=== PATIENT | male | born 1960 | race Caucasian/White ===

== ENCOUNTER → 2017-02-12 14:31 | Outpatient (CLI) | payer BC ==
[2017-02-12 15:14] LABS: BASOPHILS 0.7 % (0-2); EOSINOPHILS 0.7 % (0-7); HEMATOCRIT 27.3 % (42.0-54.0); HEMOGLOBIN 8.8 g/dL (13.5-17.5); IMMATURE GRANULOCYTES 0.6 % (0-5); LYMPHOCYTES 26.5 % (15-50); MCH 29.1 pg (26.0-34.0); MCHC 32.2 g/dL (31.0-37.0); MCV 90.4 fL (80.0-100.0); MEAN PLATELET VOLUME 8.3 fL (7.4-10.4); MONOCYTES 11.3 % (2-11); NEUTROPHILS 60.2 % (40-80); PLATELET COUNT 884 10x3/uL (130-400); RBC 3.02 10x6/uL (4.20-6.10); RDW 14.3 % (11.5-14.5); WBC 9.4 10x3/uL (4.8-10.8)
[2017-02-12 15:55] LABS: ALBUMIN 2.3 g/dL (3.4-5.0); BILIRUBIN - DIRECT 0.05 mg/dL (0.00-0.30); BILIRUBIN - INDIRECT 0.15 mg/dL (0.00-1.00); BILIRUBIN - TOTAL 0.2 mg/dL (0.2-1.3); C-REACTIVE PROTEIN 8.4 mg/dL (0.0-0.9); CALCIUM 9.3 mg/dL (8.5-10.1); CARBON DIOXIDE 27.7 mmol/L (21.0-32.0); CREATININE - SERUM 1.1 mg/dL (0.6-1.3); POTASSIUM - SERUM 3.7 mmol/L (3.5-5.1); PROTEIN - SERUM 7.9 g/dL (6.4-8.2)
[2017-02-12 16:31] LABS: ERYTHROCYTE SEDIMENTATION RATE 145 mm/hr (0-20)
== END | disposition home or self-care (01) ==
LOC: D.LABREF 14:31
PROVIDERS: Internal Medicine Infectious Disease
DX: M00.869 Arthritis due to other bacteria, unspecified knee (principal)

== ENCOUNTER → 2017-02-17 10:57 | Outpatient (CLI) | payer BC ==
[2017-02-17 11:48] LABS: BASOPHILS 0.3 % (0-2); EOSINOPHILS 0.9 % (0-7); HEMATOCRIT 29.4 % (42.0-54.0); HEMOGLOBIN 9.4 g/dL (13.5-17.5); IMMATURE GRANULOCYTES 0.4 % (0-5); LYMPHOCYTES 26.9 % (15-50); MCH 28.7 pg (26.0-34.0); MCV 89.6 fL (80.0-100.0); MEAN PLATELET VOLUME 8.6 fL (7.4-10.4); MONOCYTES 9.5 % (2-11); RBC 3.28 10x6/uL (4.20-6.10); RDW 14.3 % (11.5-14.5); WBC 8.9 10x3/uL (4.8-10.8)
[2017-02-17 11:50] LABS: PLATELET COUNT 635 10x3/uL (130-400)
[2017-02-17 12:15] LABS: ALBUMIN 2.4 g/dL (3.4-5.0); ALKALINE PHOSPHATASE 165 U/L (46-116); ALT (SGPT) 22 U/L (10-68); BILIRUBIN - DIRECT 0.08 mg/dL (0.00-0.30); BILIRUBIN - INDIRECT 0.24 mg/dL (0.00-1.00); BILIRUBIN - TOTAL 0.32 mg/dL (0.2-1.3); C-REACTIVE PROTEIN 6.1 mg/dL (0.0-0.9); CALC OSMOLALITY 271 mosm/kg (275-300); CALCIUM 9.5 mg/dL (8.5-10.1); CHLORIDE - SERUM 98 mmol/L (98-107); POTASSIUM - SERUM 3.5 mmol/L (3.5-5.1); PROTEIN - SERUM 8.1 g/dL (6.4-8.2); SODIUM 134 mmol/L (136-145); UREA NITROGEN 12 mg/dL (7-18); eGFR NON AFRICAN AMERICAN 83 mL/min (90-120)
[2017-02-17 12:17] LABS: GLUCOSE 165 mg/dL (74-106)
[2017-02-17 13:19] LABS: ERYTHROCYTE SEDIMENTATION RATE 107 mm/hr (0-20)
== END | disposition home or self-care (01) ==
LOC: D.LAB 10:57
PROVIDERS: Internal Medicine Infectious Disease
DX: M00.869 Arthritis due to other bacteria, unspecified knee (principal)

== ENCOUNTER → 2017-02-25 12:55 | Outpatient (CLI) | payer BC ==
[2017-02-25 13:14] LABS: BASOPHILS 0.3 % (0-2); HEMATOCRIT 26.1 % (42.0-54.0); HEMOGLOBIN 8.5 g/dL (13.5-17.5); IMMATURE GRANULOCYTES 0.9 % (0-5); LYMPHOCYTES 22.7 % (15-50); MCH 29.1 pg (26.0-34.0); MCHC 32.6 g/dL (31.0-37.0); MCV 89.4 fL (80.0-100.0); MEAN PLATELET VOLUME 8.7 fL (7.4-10.4); MONOCYTES 11.6 % (2-11); NEUTROPHILS 62.5 % (40-80); RBC 2.92 10x6/uL (4.20-6.10); RDW 14.1 % (11.5-14.5); WBC 10.1 10x3/uL (4.8-10.8)
[2017-02-25 13:19] LABS: PLATELET COUNT 470 10x3/uL (130-400)
[2017-02-25 13:30] LABS: ANION GAP 12.6 mmol/L (8-16); BILIRUBIN - DIRECT 0.07 mg/dL (0.00-0.30); BILIRUBIN - INDIRECT 0.31 mg/dL (0.00-1.00); BILIRUBIN - TOTAL 0.38 mg/dL (0.2-1.3); CALCIUM 8.9 mg/dL (8.5-10.1); CARBON DIOXIDE 26.6 mmol/L (21.0-32.0); CREATININE - SERUM 1.1 mg/dL (0.6-1.3); POTASSIUM - SERUM 3.2 mmol/L (3.5-5.1); PROTEIN - SERUM 7.2 g/dL (6.4-8.2); VANCOMYCIN - TROUGH 6.6 ug/mL (10.0-20.0)
[2017-02-25 13:41] LABS: C-REACTIVE PROTEIN 21.3 mg/dL (0.0-0.9)
[2017-02-25 14:18] LABS: ERYTHROCYTE SEDIMENTATION RATE 126 mm/hr (0-20)
== END | disposition home or self-care (01) ==
LOC: D.LABREF 12:55
PROVIDERS: Internal Medicine Infectious Disease
DX: M00.9 Pyogenic arthritis, unspecified (principal)

== ENCOUNTER → 2017-02-27 10:49 | Outpatient (CLI) | payer BC ==
[2017-02-27 11:18] LABS: BASOPHILS 0.5 % (0-2); EOSINOPHILS 2.1 % (0-7); HEMATOCRIT 27.3 % (42.0-54.0); IMMATURE GRANULOCYTES 1.3 % (0-5); LYMPHOCYTES 26.1 % (15-50); MCH 29.5 pg (26.0-34.0); MCV 89.5 fL (80.0-100.0); MEAN PLATELET VOLUME 8.5 fL (7.4-10.4); MONOCYTES 10.8 % (2-11); NEUTROPHILS 59.2 % (40-80); PLATELET COUNT 557 10x3/uL (130-400); RBC 3.05 10x6/uL (4.20-6.10); RDW 14.1 % (11.5-14.5); WBC 10.7 10x3/uL (4.8-10.8)
[2017-02-27 12:25] LABS: ALBUMIN 2.2 g/dL (3.4-5.0); ANION GAP 13.6 mmol/L (8-16); BILIRUBIN - DIRECT 0.09 mg/dL (0.00-0.30); BILIRUBIN - INDIRECT 0.37 mg/dL (0.00-1.00); BILIRUBIN - TOTAL 0.46 mg/dL (0.2-1.3); C-REACTIVE PROTEIN 15.6 mg/dL (0.0-0.9); CALCIUM 9.4 mg/dL (8.5-10.1); CREATININE - SERUM 1.2 mg/dL (0.6-1.3); POTASSIUM - SERUM 3.6 mmol/L (3.5-5.1); VANCOMYCIN - TROUGH 12.6 ug/mL (10.0-20.0)
[2017-02-27 12:26] LABS: ERYTHROCYTE SEDIMENTATION RATE 120 mm/hr (0-20)
== END | disposition home or self-care (01) ==
LOC: D.LABREF 10:49
PROVIDERS: Internal Medicine Infectious Disease
DX: Z51.81 Encounter for therapeutic drug level monitoring (principal); Z79.2 Long term (current) use of antibiotics; B95.4 Other streptococcus as the cause of diseases classified elsewhere; M00.262 Other streptococcal arthritis, left knee

== ENCOUNTER → 2017-03-03 13:27 | Outpatient (CLI) | payer BC ==
[2017-03-03 13:48] LABS: BASOPHILS 0.5 % (0-2); EOSINOPHILS 1.4 % (0-7); HEMATOCRIT 30.7 % (42.0-54.0); HEMOGLOBIN 9.6 g/dL (13.5-17.5); IMMATURE GRANULOCYTES 2.1 % (0-5); LYMPHOCYTES 23.7 % (15-50); MCH 28.7 pg (26.0-34.0); MCHC 31.3 g/dL (31.0-37.0); MCV 91.9 fL (80.0-100.0); MEAN PLATELET VOLUME 8.4 fL (7.4-10.4); MONOCYTES 10.3 % (2-11); RBC 3.34 10x6/uL (4.20-6.10); RDW 14.9 % (11.5-14.5); WBC 13.1 10x3/uL (4.8-10.8)
[2017-03-03 13:53] LABS: ALBUMIN 2.5 g/dL (3.4-5.0); ALKALINE PHOSPHATASE 186 U/L (46-116); ALT (SGPT) 28 U/L (10-68); BILIRUBIN - INDIRECT 0.44 mg/dL (0.00-1.00); BILIRUBIN - TOTAL 0.54 mg/dL (0.2-1.3); C-REACTIVE PROTEIN 6.2 mg/dL (0.0-0.9); CALC OSMOLALITY 270 mosm/kg (275-300); CALCIUM 9.2 mg/dL (8.5-10.1); CARBON DIOXIDE 24.7 mmol/L (21.0-32.0); CHLORIDE - SERUM 101 mmol/L (98-107); POTASSIUM - SERUM 3.9 mmol/L (3.5-5.1); PROTEIN - SERUM 8.1 g/dL (6.4-8.2); SODIUM 136 mmol/L (136-145); UREA NITROGEN 10 mg/dL (7-18); VANCOMYCIN - TROUGH 11.5 ug/mL (10.0-20.0); eGFR NON AFRICAN AMERICAN 83 mL/min (90-120)
[2017-03-03 13:57] LABS: GLUCOSE 91 mg/dL (74-106)
[2017-03-03 14:10] LABS: PLATELET COUNT 757 10x3/uL (130-400)
[2017-03-03 14:52] LABS: ERYTHROCYTE SEDIMENTATION RATE 27 mm/hr (0-20)
== END | disposition home or self-care (01) ==
LOC: D.LABREF 13:27
PROVIDERS: Internal Medicine Infectious Disease
DX: M00.9 Pyogenic arthritis, unspecified (principal)

== ENCOUNTER → 2017-03-10 10:09 | Outpatient (CLI) | payer BC ==
[2017-03-10 12:52] LABS: BASOPHILS 0.9 % (0-2); EOSINOPHILS 2.2 % (0-7); HEMATOCRIT 31.1 % (42.0-54.0); HEMOGLOBIN 9.8 g/dL (13.5-17.5); IMMATURE GRANULOCYTES 1.1 % (0-5); LYMPHOCYTES 21.4 % (15-50); MCH 28.6 pg (26.0-34.0); MCHC 31.5 g/dL (31.0-37.0); MCV 90.7 fL (80.0-100.0); MEAN PLATELET VOLUME 8.5 fL (7.4-10.4); MONOCYTES 10.6 % (2-11); NEUTROPHILS 63.8 % (40-80); PLATELET COUNT 703 10x3/uL (130-400); RBC 3.43 10x6/uL (4.20-6.10); RDW 14.5 % (11.5-14.5); WBC 10.1 10x3/uL (4.8-10.8)
[2017-03-10 13:13] LABS: ALBUMIN 2.7 g/dL (3.4-5.0); ALKALINE PHOSPHATASE 187 U/L (46-116); ALT (SGPT) 23 U/L (10-68); BILIRUBIN - DIRECT 0.11 mg/dL (0.00-0.30); BILIRUBIN - INDIRECT 0.28 mg/dL (0.00-1.00); BILIRUBIN - TOTAL 0.39 mg/dL (0.2-1.3); C-REACTIVE PROTEIN 4.8 mg/dL (0.0-0.9); CALC OSMOLALITY 270 mosm/kg (275-300); CALCIUM 9.1 mg/dL (8.5-10.1); CARBON DIOXIDE 25.2 mmol/L (21.0-32.0); CHLORIDE - SERUM 102 mmol/L (98-107); GLUCOSE 83 mg/dL (74-106); POTASSIUM - SERUM 4.4 mmol/L (3.5-5.1); PROTEIN - SERUM 7.4 g/dL (6.4-8.2); SODIUM 137 mmol/L (136-145); UREA NITROGEN 8 mg/dL (7-18); VANCOMYCIN - TROUGH 12.4 ug/mL (10.0-20.0); eGFR NON AFRICAN AMERICAN 83 mL/min (90-120)
[2017-03-10 13:57] LABS: ERYTHROCYTE SEDIMENTATION RATE 71 mm/hr (0-20)
== END | disposition home or self-care (01) ==
LOC: D.LABREF 10:09
PROVIDERS: Internal Medicine Infectious Disease
DX: T84.7XXA Infection and inflammatory reaction due to other internal orthopedic prosthetic devices, implants and grafts, initial encounter (principal)

== ENCOUNTER → 2017-03-17 17:56 | Outpatient (CLI) | payer BC ==
[2017-03-17 19:45] LABS: BASOPHILS 0.5 % (0-2); EOSINOPHILS 1.8 % (0-7); HEMATOCRIT 40.2 % (42.0-54.0); HEMOGLOBIN 12.4 g/dL (13.5-17.5); IMMATURE GRANULOCYTES 0.7 % (0-5); LYMPHOCYTES 16.7 % (15-50); MCHC 30.8 g/dL (31.0-37.0); MCV 94.1 fL (80.0-100.0); MONOCYTES 9.2 % (2-11); NEUTROPHILS 71.1 % (40-80); PLATELET COUNT 529 10x3/uL (130-400); RBC 4.27 10x6/uL (4.20-6.10); RDW 15.3 % (11.5-14.5); WBC 9.7 10x3/uL (4.8-10.8)
[2017-03-17 20:07] LABS: ALBUMIN 3.2 g/dL (3.4-5.0); ALKALINE PHOSPHATASE 173 U/L (46-116); ALT (SGPT) 19 U/L (10-68); BILIRUBIN - DIRECT 0.06 mg/dL (0.00-0.30); BILIRUBIN - INDIRECT 0.25 mg/dL (0.00-1.00); BILIRUBIN - TOTAL 0.31 mg/dL (0.2-1.3); C-REACTIVE PROTEIN 1.7 mg/dL (0.0-0.9); CALC OSMOLALITY 276 mosm/kg (275-300); CALCIUM 9.5 mg/dL (8.5-10.1); CARBON DIOXIDE 25.2 mmol/L (21.0-32.0); CHLORIDE - SERUM 99 mmol/L (98-107); GLUCOSE 92 mg/dL (74-106); PROTEIN - SERUM 8.1 g/dL (6.4-8.2); SODIUM 139 mmol/L (136-145); UREA NITROGEN 9 mg/dL (7-18); VANCOMYCIN - TROUGH 16.3 ug/mL (10.0-20.0); eGFR NON AFRICAN AMERICAN 83 mL/min (90-120)
[2017-03-17 21:19] LABS: ERYTHROCYTE SEDIMENTATION RATE 9 mm/hr (0-20)
== END | disposition home or self-care (01) ==
LOC: D.LABREF 17:56
PROVIDERS: Internal Medicine Infectious Disease
DX: T84.7XXA Infection and inflammatory reaction due to other internal orthopedic prosthetic devices, implants and grafts, initial encounter (principal)

== ENCOUNTER → 2017-03-24 13:38 | Outpatient (CLI) | payer BC ==
[2017-03-24 14:05] LABS: BASOPHILS 1.3 % (0-2); EOSINOPHILS 2.7 % (0-7); HEMATOCRIT 39.7 % (42.0-54.0); HEMOGLOBIN 12.7 g/dL (13.5-17.5); IMMATURE GRANULOCYTES 0.9 % (0-5); LYMPHOCYTES 26.9 % (15-50); MCH 29.1 pg (26.0-34.0); MCV 91.1 fL (80.0-100.0); MEAN PLATELET VOLUME 9.1 fL (7.4-10.4); MONOCYTES 10.9 % (2-11); NEUTROPHILS 57.3 % (40-80); RBC 4.36 10x6/uL (4.20-6.10); RDW 15.1 % (11.5-14.5); WBC 7.7 10x3/uL (4.8-10.8)
[2017-03-24 14:19] LABS: PLATELET COUNT 357 10x3/uL (130-400)
[2017-03-24 14:21] LABS: ALBUMIN 3.4 g/dL (3.4-5.0); ALKALINE PHOSPHATASE 142 U/L (46-116); ALT (SGPT) 24 U/L (10-68); BILIRUBIN - DIRECT 0.09 mg/dL (0.00-0.30); BILIRUBIN - INDIRECT 0.37 mg/dL (0.00-1.00); BILIRUBIN - TOTAL 0.46 mg/dL (0.2-1.3); C-REACTIVE PROTEIN 0.6 mg/dL (0.0-0.9); CALC OSMOLALITY 273 mosm/kg (275-300); CARBON DIOXIDE 26.4 mmol/L (21.0-32.0); CHLORIDE - SERUM 100 mmol/L (98-107); CREATININE - SERUM 0.9 mg/dL (0.6-1.3); GLUCOSE 81 mg/dL (74-106); PROTEIN - SERUM 8.1 g/dL (6.4-8.2); SODIUM 138 mmol/L (136-145); UREA NITROGEN 10 mg/dL (7-18); VANCOMYCIN - TROUGH 19.6 ug/mL (10.0-20.0); eGFR NON AFRICAN AMERICAN > 90 mL/min (90-120)
[2017-03-24 15:14] LABS: ERYTHROCYTE SEDIMENTATION RATE 25 mm/hr (0-20)
== END | disposition home or self-care (01) ==
LOC: D.LABREF 13:38
PROVIDERS: Internal Medicine Infectious Disease
DX: T84.7XXA Infection and inflammatory reaction due to other internal orthopedic prosthetic devices, implants and grafts, initial encounter (principal)

== ENCOUNTER → 2017-03-31 12:09 | Outpatient (CLI) | payer BC ==
[2017-03-31 12:30] LABS: BASOPHILS 0.8 % (0-2); EOSINOPHILS 1.2 % (0-7); HEMATOCRIT 39.7 % (42.0-54.0); HEMOGLOBIN 12.8 g/dL (13.5-17.5); IMMATURE GRANULOCYTES 0.9 % (0-5); LYMPHOCYTES 18.9 % (15-50); MCH 29.2 pg (26.0-34.0); MCHC 32.2 g/dL (31.0-37.0); MCV 90.6 fL (80.0-100.0); MONOCYTES 14.9 % (2-11); NEUTROPHILS 63.3 % (40-80); PLATELET COUNT 358 10x3/uL (130-400); RBC 4.38 10x6/uL (4.20-6.10); RDW 15.3 % (11.5-14.5); WBC 7.7 10x3/uL (4.8-10.8)
[2017-03-31 12:52] LABS: ALBUMIN 3.4 g/dL (3.4-5.0); ALKALINE PHOSPHATASE 121 U/L (46-116); ALT (SGPT) 30 U/L (10-68); BILIRUBIN - INDIRECT 0.28 mg/dL (0.00-1.00); BILIRUBIN - TOTAL 0.38 mg/dL (0.2-1.3); C-REACTIVE PROTEIN 1.2 mg/dL (0.0-0.9); CALC OSMOLALITY 273 mosm/kg (275-300); CALCIUM 9.4 mg/dL (8.5-10.1); CARBON DIOXIDE 26.1 mmol/L (21.0-32.0); CHLORIDE - SERUM 100 mmol/L (98-107); GLUCOSE 93 mg/dL (74-106); POTASSIUM - SERUM 3.8 mmol/L (3.5-5.1); PROTEIN - SERUM 7.8 g/dL (6.4-8.2); SODIUM 138 mmol/L (136-145); UREA NITROGEN 8 mg/dL (7-18); VANCOMYCIN - TROUGH 16.6 ug/mL (10.0-20.0); eGFR NON AFRICAN AMERICAN 83 mL/min (90-120)
[2017-03-31 13:48] LABS: ERYTHROCYTE SEDIMENTATION RATE 15 mm/hr (0-20)
== END | disposition home or self-care (01) ==
LOC: D.LABREF 12:09
PROVIDERS: Internal Medicine Infectious Disease
DX: T84.7XXA Infection and inflammatory reaction due to other internal orthopedic prosthetic devices, implants and grafts, initial encounter (principal)

== ENCOUNTER → 2017-04-07 11:21 | Outpatient (CLI) | payer BC ==
[2017-04-07 12:34] LABS: BASOPHILS 0.8 % (0-2); EOSINOPHILS 2.1 % (0-7); HEMATOCRIT 40.3 % (42.0-54.0); HEMOGLOBIN 12.8 g/dL (13.5-17.5); IMMATURE GRANULOCYTES 1.4 % (0-5); LYMPHOCYTES 33.6 % (15-50); MCH 28.5 pg (26.0-34.0); MCHC 31.8 g/dL (31.0-37.0); MCV 89.8 fL (80.0-100.0); MEAN PLATELET VOLUME 9.3 fL (7.4-10.4); MONOCYTES 9.2 % (2-11); NEUTROPHILS 52.9 % (40-80); PLATELET COUNT 422 10x3/uL (130-400); RBC 4.49 10x6/uL (4.20-6.10); RDW 15.3 % (11.5-14.5); WBC 10.3 10x3/uL (4.8-10.8)
[2017-04-07 13:02] LABS: C-REACTIVE PROTEIN 5.9 mg/dL (0.0-0.9); CALC OSMOLALITY 271 mosm/kg (275-300); CALCIUM 9.7 mg/dL (8.5-10.1); CARBON DIOXIDE 26.3 mmol/L (21.0-32.0); CHLORIDE - SERUM 100 mmol/L (98-107); CREATININE - SERUM 0.9 mg/dL (0.6-1.3); GLUCOSE 89 mg/dL (74-106); POTASSIUM - SERUM 4.3 mmol/L (3.5-5.1); SODIUM 137 mmol/L (136-145); UREA NITROGEN 10 mg/dL (7-18); eGFR NON AFRICAN AMERICAN > 90 mL/min (90-120)
[2017-04-07 13:38] LABS: ERYTHROCYTE SEDIMENTATION RATE 40 mm/hr (0-20)
== END | disposition home or self-care (01) ==
LOC: D.LABREF 11:21
PROVIDERS: Internal Medicine Infectious Disease
DX: T84.7XXA Infection and inflammatory reaction due to other internal orthopedic prosthetic devices, implants and grafts, initial encounter (principal)

== ENCOUNTER → 2018-08-06 08:10 | Outpatient (CLI) | payer BC ==
--- NOTE | ~2018-08-06 | HEMODYNAMI ---
PATIENT:KAY OLVERA MEDICAL RECORD: [id number] : 64 LOCATION:[facility] ADMISSION DATE: 08/06/18 Generatedon:08/06/20189:26 Patient name: KAY OLVERA Patient #: [id number] SSN: : 1960 Date of study: 08/06/2018 Page: Of Hemodynamic Procedure Report Patient Data Patient Demographics Procedure consent was obtained First Name: KAY Gender: Male Last Name: MAY : 1960 Patient #: [id number] Age: 57 year(s) Race: Unknown Additional ID: [id number] Contact details [address]: [address] [place] [address] State: [place] City: [place] Zip code: [address] Past Medical History Allergies: No known allergies Admission Admission Data Admission Date: 08/06/2018 Admission Time: 8:10 Procedure Procedure Types Cath Procedure Peripheral Cath Diagnostic Procedure Mica Parts Sprayer Peripheral Procedures Miscellaneous Aspiration/Injection (Joint) Procedure Description Procedure Date Procedure Date: 08/06/2018 Procedure Start Time: 9:18 Procedure Staff Name Function Saurabh Yanez MD Performing Physician Marla Matthew RT Hanging Flags Decorator Jerica Weston RN Nurse Abdoul Villavicencio RT Scrub Procedure Data Cath Procedure Fluoroscopy Diagnostic fluoroscopy Total fluoroscopy Time: 0.1 time: 0.1 min min Diagnostic fluoroscopy Total fluoroscopy dose: 1 dose: 1 mGy mGy Hemodynamics Rest Pre Cath Intra NCS Post Cath Procedure Log Time Note 9:13:48 Abdoul Villavicencio RT (R) (CV) sent for patient. Start room use. 9:14:01 Time tracking: Regular hours (M-F 7:00 - 5:00) 9:14:06 Patient received from Outpatients to IR Alert and oriented. Tansferred to table in Supine position. 9:14:07 Correct patient and procedure confirmed by team. 9:14:09 Signed procedure consent form obtained from patient. 9:14:11 Full Disclosure recording started 9:14:13 9:14:14 Pre-procedure instructions explained to patient. 9:14:15 Pre-op teaching completed and patient verbalized understanding. 9:14:22 Patient allergic to No known allergies 9:14:28 Is patient on blood thinner?No 9:14:38 Left Knee was prepped with betadine and draped in sterile fashion. 9:17:49 Physician arrived 9:17:50 --------ALL STOP TIME OUT------ 9:17:51 Final Timeout: patient, procedure, and site verified with staff and physician. All members of the team are in agreement. 9:17:57 Left knee site verified by team. 9:18:10 Sedation plan: Local Anesthetic Medication:Lidocaine 9:18:36 Procedure started. 9:18:43 Local anesthetic to Left Knee with Lidocaine 1% by Saurabh Yanez MD.INITIAL ACCESS ONLY 9:24:44 Procedure ended.(Physican Out) 9:25:11 Fluoroscopy time 00.10 minutes. 9:25:17 Fluoroscopy dose: 1 mGy 9:25:17 Flurop Dose total: 1 9:25:54 bandaide applied to lt.knee site stable fluid marked collected and sent to lab Signature Audit [place] Stage Time Signature Unsigned Intra-Procedure 08/06/2018 Abdoul 9:26:09 AM Saud RT (R) () [facility] [address] [facility] [place] [address]
[2018-08-06 13:52] LABS: MACROPHAGES BF 11 %; NEUT - BF 79 %
== END | disposition home or self-care (01) ==
LOC: D.SP 08:10 → D.RAD 09:00 → D.SP 09:30 → D.RAD 09:30
PROVIDERS: Specialist; ATTEND Family Medicine
DX: M25.562 Pain in left knee (principal); Z01.812 Encounter for preprocedural laboratory examination

== ENCOUNTER 2018-08-14 07:41 | Day surgery (SDC) | payer BC ==
[~2018-08-14] VITALS: Ht 160 cm; Wt 81.8 kg
[2018-08-14] MEDS ORDERED: DIFLUCAN200 MG PO (09:39)
[2018-08-14] MEDS ORDERED: DUEXIS 800-26.1 EACH PO (09:39)
[2018-08-14 09:54] VITALS: BP 103/68; Ht 160 cm; Wt 81.8 kg
[2018-08-14] MEDS ORDERED: PERCOCET 5-3251 TAB PO (17:46)
--- NOTE | 2018-08-14 19:05 | NUR ---
PATIENT AMBULATES TO BATHROOM AND VOIDS IN TOILET, AMBULATES WITHOUT UNSTEADINESS OR DIFFICULTY. 190 RIGHT HAND PIV DC'D WITH TIP INTACT. PATIENT DRESSING IN PERSONAL CLOTHING WITH SPOUSE ASSISTANCE
--- NOTE | 2018-08-14 19:40 | NUR ---
DISCHARGE INSTRUCTIONS REVIEWED WITH PATIENT AND SPOUSE. DISCHARGED HOME VIA WHEELCHAIR TO PRIVATE VEHICLE WITH SPOUSE
--- NOTE | 2018-08-17 12:46 | OP ---
PATIENT NAME: KAY REYNOSO MEDICAL RECORD: [id number] :64 LOCATION:[facility] ADMISSION DATE: SURGEON: SAURABH LE DO DATE OF OPERATION: 08/14/2018 PROCEDURE PERFORMED: Left knee arthroscopy with irrigation and debridement and tissue and bone biopsy. PREOPERATIVE DIAGNOSIS: Left knee fungal infection. POSTOPERATIVE DIAGNOSIS: Left knee fungal infection. INDICATIONS: Mr. Reynoso is a 57-year-old male that has had several knee surgeries and ended up having a septic knee several times. Underwent several knee scopes after an ACL surgery that got infected at another facility and ended up having a synovectomy in order to eradicate the infection. He started to have more pain and swelling. His knee was aspirated earlier this week and grew out fungus. He was then put on antifungals and discussing with infectious disease doctor here, Dr. Hardin. This call came from his primary care. I saw him in the office yesterday and told him I would do an irrigation and debridement with the scope and get tissue biopsy and bone biopsy as well to ensure the whole infection was eradicated and did not have any osteomyelitis from it. The patient was aware of the risks and benefits of procedure and consented to the procedure. SURGEON: Saurabh Le DO VISITOR SERVICES REPRESENTATIVE: Edis Esposito DESCRIPTION OF PROCEDURE: The patient was taken to the operative suite, laid in supine position, given general anesthetic and LMA was placed. The left lower extremity was prepped and draped in sterile fashion. Antibiotics were held until the tissue culture was made, bone biopsy was made and then he was given a gram of vancomycin. After the time-out, the knee was flexed down and the lateral incision was made for the lateral portal. The trocar was entered into the knee. It was quite thickened due to the scar tissue. The camera was then entered in and then the medial portal was established with an 18-guage spinal needle and 11-blade scalpel. The biter was then brought in to bite out some of the tissue in the knee. This was put in a culture cup and then a Jamshidi needle was brought into the femoral condyle and the notch and a biopsy of bone was taken from that and then put in the cup. At that point, the condyles were inspected, both the medial and lateral femoral condyles as well as the medial and lateral tibial plateaus and all had severe cartilage loss. There was significant amount of cartilage floating around the knee as well. This was all chewed out with a shaver and the knee was washed through with 9 liters of normal saline. Once this was completed, the scope was removed from the knee as well as the shaver. The sites were closed with 4-0 Monocryl in an inverted interrupted fashion and Steri-Strips, Adaptic, 4 x 4's, and Tegaderm were placed over the knee. The knee was wrapped in ABD, then Webril, and then Rikki wrap and the SIXTO stocking was placed on the patient up to the knee. He was awakened and taken to recovery in stable condition. Blood loss was minimal. Complications none. TRANSINT:[id number] Voice Confirmation ID: [id number] DOCUMENT ID: [id number] OPERATIVE REPORT [id number] KAY REYNOSO,SAURABH Fagan DO at 1246 CC: [id number] DICTATION DATE: 08/14/181750 BONE CHAR KILN OPERATOR: 08/15/18 0006 [facility] 08/14/18 [facility] [address] [place] [address]
== END 2018-08-14 19:40 | disposition home or self-care (01) ==
LOC: D.OPS 07:41 → D.PAN 12:30 → D.OPS 19:40
PROVIDERS: ATTEND Orthopaedic Surgery
DX: T81.49XA Infection following a procedure, other surgical site, initial encounter (principal); B48.8 Other specified mycoses; Z01.812 Encounter for preprocedural laboratory examination

== ENCOUNTER → 2018-09-15 14:15 | Outpatient (CLI) | payer BC ==
[~2018-09-15 14:15] MED LIST: DIFLUCAN200 MG PO; DUEXIS 800-26.1 EACH PO; PERCOCET 5-3251 TAB PO
[2018-09-15 15:11] LABS: ALBUMIN 3.5 g/dL (3.4-5.0); ALKALINE PHOSPHATASE 102 U/L (46-116); ALT (SGPT) 18 U/L (10-68); BILIRUBIN - TOTAL 0.24 mg/dL (0.2-1.3); C-REACTIVE PROTEIN 3.7 mg/dL (0.0-0.9); CALC OSMOLALITY 280 mosm/kg (275-300); CALCIUM 8.8 mg/dL (8.5-10.1); CARBON DIOXIDE 25.4 mmol/L (21.0-32.0); CHLORIDE - SERUM 104 mmol/L (98-107); GLUCOSE 73 mg/dL (74-106); POTASSIUM - SERUM 4.9 mmol/L (3.5-5.1); PROTEIN - SERUM 8.1 g/dL (6.4-8.2); SODIUM 140 mmol/L (136-145); UREA NITROGEN 21 mg/dL (7-18); eGFR NON AFRICAN AMERICAN 82 mL/min (90-120)
[2018-09-15 16:27] LABS: ERYTHROCYTE SEDIMENTATION RATE 43 mm/hr (0-20)
== END | disposition home or self-care (01) ==
LOC: D.LABREF 14:15
PROVIDERS: Student in an Organized Health Care Education/Training Program
DX: M86.669 Other chronic osteomyelitis, unspecified tibia and fibula (principal)

== ENCOUNTER → 2018-11-02 15:57 | Outpatient (CLI) | payer BC ==
[2018-08-14 09:54] VITALS: BMI 31.9
[2018-11-02 20:10] LABS: MACROPHAGES BF 1 %; NEUT - BF 36 %
[2018-11-11 13:13] LABS: FUNGUS STAIN Final report (())
[2018-11-13 10:14] LABS: FUNGUS MYCOLOGY CULTURE Preliminary report (())
== END | disposition home or self-care (01) ==
LOC: D.LABREF 15:57
PROVIDERS: ATTEND Orthopaedic Surgery
DX: M25.562 Pain in left knee (principal)

== ENCOUNTER → 2018-11-06 17:01 | Outpatient (CLI) | payer BC ==
[2018-08-14 09:54] VITALS: BMI 31.9
[2018-11-06 18:34] LABS: BASOPHILS 0.5 % (0-2); EOSINOPHILS 1.9 % (0-7); HEMATOCRIT 33.3 % (42.0-54.0); HEMOGLOBIN 10.6 g/dL (13.5-17.5); IMMATURE GRANULOCYTES 0.6 % (0-5); LYMPHOCYTES 21.2 % (15-50); MCH 26.5 pg (26.0-34.0); MCHC 31.8 g/dL (31.0-37.0); MCV 83.3 fL (80.0-100.0); MEAN PLATELET VOLUME 9.2 fL (7.4-10.4); MONOCYTES 13.5 % (2-11); NEUTROPHILS 62.3 % (40-80); RDW 16.3 % (11.5-14.5); WBC 10.5 10x3/uL (4.8-10.8)
[2018-11-06 18:42] LABS: PLATELET COUNT 552 10x3/uL (130-400)
[2018-11-06 19:50] LABS: ERYTHROCYTE SEDIMENTATION RATE 60 mm/hr (0-20)
== END | disposition home or self-care (01) ==
LOC: D.LABREF 17:01
PROVIDERS: ATTEND Student in an Organized Health Care Education/Training Program
DX: M86.669 Other chronic osteomyelitis, unspecified tibia and fibula (principal)

== ENCOUNTER 2019-07-23 09:09 | Day surgery (SDC) | payer BC ==
[~2019-07-23] VITALS: Ht 160 cm; Wt 81.6 kg
[~2019-07-23 09:09] MED LIST changes: +ULTRAM50 MG PO
[2019-07-23 10:23] VITALS: BP 124/73; Ht 160 cm; Wt 81.6 kg
[2019-07-23] MEDS ORDERED: PERCOCET 10-321 EAC1 PO (15:24)
--- NOTE | 2019-07-23 21:20 | OP ---
PATIENT NAME: KAY REYNOSO MEDICAL RECORD: [id number] :64 LOCATION:[facility] ADMISSION DATE: SURGEON: SAURABH LE DO DATE OF OPERATION: 07/23/2019 PROCEDURE PERFORMED: Left knee arthroscopy with bone biopsy of the femur. PREOPERATIVE DIAGNOSIS: Osteomyelitis of the left knee. POSTOPERATIVE DIAGNOSIS: Osteomyelitis of the left knee. INDICATIONS: Mr. Reynoso is a 58-year-old male, who has a history of osteomyelitis of the left knee after a failed ACL surgery. He was treated elsewhere and then had a synovectomy as well as I&D and then came to me with continued knee pain. 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 He has been treated with antifungals for the last year. I did a knee aspiration 6 months ago. It did not show any fungus in the culture of the aspirate. I told him we would wait 6 months and then do a bone biopsy like we did before and have that sent off for cultures in anticipation that if it is clear, we would proceed with a total knee arthroplasty. He was okay with those risks including infection, bleeding, damage to nerves or vessels, need for further surgery, continued pain and instability of the knee and he signed a consent. SURGEON: Saurabh Le DO DESCRIPTION OF PROCEDURE: The patient was taken to the operative suite, given general anesthetic, LMA placed. Two grams of Ancef given preoperatively. The left lower extremity was then prepped and draped in sterile fashion. Timeout was performed. Everyone was agreeance with correct side, site, patient and procedure. We then started by creating the lateral portal with an 11-blade scalpel. Trocar was entered in to the knee, the scope was then entered to the knee. I went to the notch of the knee. The medial portal was then established with 18-guage spinal needle and 11-blade scalpel at that time and shaver first was brought in to debride the knee somewhat to clear a spot out in the notch. The Jamshidi needle was then brought in and a bone biopsy was taken at 2 different spots in the femoral notch and put in a specimen cup. I then turned the suction on the water off. I then removed the excess fluid from the knee. Portal sites were closed with 4-0 Monocryl in inverted interrupted fashion. Steri-Strips, Adaptic, 4 x 4's, ABD, Webril, Rikki wrap and SIXTO hose stockings were then placed on the knee. He was awakened and taken to recovery in stable condition. BLOOD LOSS: Minimal. COMPLICATIONS: None. TRANSINT:[id number] Voice Confirmation ID: [id number] DOCUMENT ID: [id number] OPERATIVE REPORT [id number] KAY REYNOSO,SAURABH Fagan DO at 2120 CC: [id number] DICTATION DATE: 07/23/19 1522 MATERIALS MANAGEMENT SUPERVISOR: 07/23/19 204 [facility] 07/23/19 [facility] [address] [place] [address]
== END 2019-07-23 16:55 | disposition home or self-care (01) ==
LOC: D.OPS 09:09 → D.PAN 11:15 → D.OPS 11:15 → D.PAN 13:40 → D.OPS 16:00
PROVIDERS: ATTEND Orthopaedic Surgery
DX: M86.8X6 Other osteomyelitis, lower leg (principal); M17.11 Unilateral primary osteoarthritis, right knee; M25.562 Pain in left knee; B49 Unspecified mycosis

== ENCOUNTER → 2019-09-23 19:52 | Outpatient (CLI) | payer BC ==
[2019-07-23 10:23] VITALS: BMI 31.9
[~2019-09-23 19:52] MED LIST changes: +PERCOCET 10-321 EAC1 PO
[2019-09-23 20:10] LABS: HEMATOCRIT 40.2 % (42.0-54.0); HEMOGLOBIN 11.8 g/dL (13.5-17.5); MCH 26.9 pg (26.0-34.0); MCHC 29.4 g/dL (31.0-37.0); MCV 91.8 fL (80.0-100.0); MEAN PLATELET VOLUME 9.2 fL (7.4-10.4); RBC 4.38 10x6/uL (4.20-6.10); RDW 17.4 % (11.5-14.5); WBC 9.9 10x3/uL (4.8-10.8)
[2019-09-23 20:13] LABS: PLATELET COUNT 415 10x3/uL (130-400)
[2019-09-23 20:31] LABS: EOSINOPHILS 3 % (0-7); LYMPHOCYTES 11 % (15-50); MONOCYTES 3 % (2-11); NEUTROPHILS 83 % (40-80); PLATELET ESTIMATE INCREASED
[2019-09-23 21:02] LABS: ALBUMIN 3.7 g/dL (3.4-5.0); ALKALINE PHOSPHATASE 110 U/L (30-120); ALT (SGPT) 28 U/L (10-68); BILIRUBIN - INDIRECT 0.21 mg/dL (0.00-1.00); BILIRUBIN - TOTAL 0.31 mg/dL (0.2-1.3); C-REACTIVE PROTEIN 5.8 mg/dL (0.0-0.9); CALC OSMOLALITY 277 mosm/kg (275-300); CALCIUM 8.9 mg/dL (8.5-10.1); CARBON DIOXIDE 23.9 mmol/L (21.0-32.0); CHLORIDE - SERUM 101 mmol/L (98-107); GLUCOSE 97 mg/dL (74-106); POTASSIUM - SERUM 4.3 mmol/L (3.5-5.1); PROTEIN - SERUM 7.9 g/dL (6.4-8.2); SODIUM 138 mmol/L (136-145); UREA NITROGEN 17 mg/dL (7-18); eGFR NON AFRICAN AMERICAN 82 mL/min (90-120)
[2019-09-23 21:31] LABS: ERYTHROCYTE SEDIMENTATION RATE 32 mm/hr (0-20)
== END | disposition home or self-care (01) ==
LOC: D.LABREF 19:52
PROVIDERS: ATTEND Orthopaedic Surgery
DX: M25.562 Pain in left knee (principal)

== ENCOUNTER 2019-10-19 05:19 | Day surgery (SDC) | payer BC ==
[~2019-10-19] VITALS: Ht 160 cm; Wt 81.6 kg
[~2019-10-19 05:19] MED LIST changes: +IBUPROFEN800 MG PO; +PEPCID AC20 MG PO
[2019-10-19 05:47] LABS: BASOPHILS 0.6 % (0-2); EOSINOPHILS 2.2 % (0-7); HEMATOCRIT 40.2 % (42.0-54.0); HEMOGLOBIN 12.7 g/dL (13.5-17.5); LYMPHOCYTES 30.5 % (15-50); MCH 28.3 pg (26.0-34.0); MCHC 31.6 g/dL (31.0-37.0); MCV 89.5 fL (80.0-100.0); MEAN PLATELET VOLUME 8.5 fL (7.4-10.4); NEUTROPHILS 53.7 % (40-80); PLATELET COUNT 370 10x3/uL (130-400); RBC 4.49 10x6/uL (4.20-6.10); RDW 16.3 % (11.5-14.5); WBC 9.1 10x3/uL (4.8-10.8)
[2019-10-19 06:10] VITALS: BP 117/58; Ht 160 cm; Wt 81.6 kg
[2019-10-19 06:44] LABS: BACTERIA FEW /hpf (NEGATIVE); BILIRUBIN NEGATIVE (NEGATIVE); EPITHELIAL CELLS OCC /hpf (0-5); GLUCOSE NEGATIVE (NEGATIVE); KETONE NEGATIVE (NEGATIVE); NITRITE NEGATIVE (NEGATIVE); RED CELLS - URINE 0-5 /hpf (0-5); SPECIFIC GRAVITY 1.025 (1.005-1.020); UROBILINOGEN NORMAL (NORMAL); WHITE CELLS - URINE OCC /hpf (NEGATIVE)
[2019-10-19] MEDS ORDERED: HYDROCODON-ACE1 EAC7 PO (07:30)
--- NOTE | 2019-10-19 07:59 | NUR ---
OPA IN AIRWAY ON ADMIT
--- NOTE | 2019-10-19 08:57 | NUR ---
DC INSTRUCTIONS GIVEN TO PT/SPOUSE. STATE UNDERSTANDING. DC'D IV CATH FULLY INTACT. WILL DC FROM UNIT SHORTLY.
--- NOTE | 2019-10-19 09:12 | NUR ---
PT LEFT UNIT VIA WC AT 0939
--- NOTE | 2019-10-19 19:36 | OP ---
PATIENT NAME: KAY REYNOSO MEDICAL RECORD: [id number] :64 LOCATION:[facility] ADMISSION DATE: SURGEON: SAURABH LE DO DATE OF OPERATION: 10/19/2019 PROCEDURE PERFORMED: Bone biopsy of the left distal femur, medial and lateral condyles and the tibia medial plateau. PREOPERATIVE DIAGNOSIS: Fungal infection, left knee. POSTOPERATIVE DIAGNOSIS: Fungal infection, left knee. INDICATIONS: Mr. Reynoso is a 59-year-old male who has undergone several surgeries, I attempted a bone biopsy a few months ago, which did not culture that just sent for path, which showed chronic osteo. He had already been undergoing treatment for a year with certain drugs, in order to direct better treatment we are getting the bone biopsies to determine of the MRI he had a sequestration in the distal femur and the proximal tibia. The biopsy was getting to them. The patient was aware of the risk and benefits of the procedure and signed the consent. SURGEON: Saurabh Le DO DESCRIPTION OF THE PROCEDURE: The patient was taken to the operative suite, laid in supine position and given general anesthetic and LMA was placed, given a gram of Ancef preoperatively. The left lower extremity was then prepped and draped in sterile fashion. Timeout was performed, everyone was in agreement with the correct side, site, patient and procedure. I then marked out the sequestration areas of the bone on C-arm with a freer. Made incisions with a 15-blade scalpel over them and used hemostat to spread the soft tissue and then used a Jamshidi needle to get bone biopsies of the first the medial femoral condyle, then the lateral femoral condyle and the proximal medial tibia. Once this was completed, the bone biopsy was sent for culture to the lab and labeled and then incision sites were anesthetized with 0.25% Marcaine with epinephrine, approximately 3 mL in each. The sites were then closed up with 4-0 Monocryl in a [id number] fashion. He was then dressed with Adaptic, 4 x 4s, ABD, Webril, Rikki wrap and awakened and taken to recovery in stable condition. BLOOD LOSS: Minimal. COMPLICATIONS: None. TRANSINT:[id number] Voice Confirmation ID: [id number] DOCUMENT ID: [id number] SAURABH LE DO at 1936 CC: [id number] DICTATION DATE: 10/19/19 0733 LOOKBACK COORDINATOR: 10/19/19 1626 [facility] 10/19/19 [facility] [address] [place] [id number]
[2019-10-20 12:10] LABS: FUNGUS STAIN Final report (())
== END 2019-10-19 09:05 | disposition home or self-care (01) ==
LOC: D.OPS 05:19 → D.PAN 14:30
PROVIDERS: Anesthesiology; ATTEND Orthopaedic Surgery
DX: B49 Unspecified mycosis (principal)

== ENCOUNTER → 2020-01-25 13:18 | Outpatient (CLI) | payer BC ==
[2019-10-19 06:10] VITALS: BMI 31.9
[~2020-01-25 13:18] MED LIST changes: +HYDROCODON-ACE1 EAC7 PO
== END | disposition home or self-care (01) ==
LOC: D.CT 13:18
PROVIDERS: ATTEND Orthopaedic Surgery
DX: B49 Unspecified mycosis (principal)

== ENCOUNTER → 2020-01-31 19:20 | Outpatient (CLI) | payer BC ==
[2019-10-19 06:10] VITALS: BMI 31.9
[2020-01-31 20:04] LABS: PROTEIN - BODY FLUID 6.9 G/DL
[2020-01-31 22:56] LABS: MACROPHAGES BF 6 %; MESOTHELIALS BF 2 %; NEUT - BF 55 %
== END | disposition home or self-care (01) ==
LOC: D.LABREF 19:20
PROVIDERS: ATTEND Orthopaedic Surgery
DX: M17.12 Unilateral primary osteoarthritis, left knee (principal)

== ENCOUNTER 2020-02-07 15:44 | Inpatient (IN) | payer BC ==
[~2020-02-07] VITALS: Ht 160 cm; Wt 81.8 kg
[2020-02-22] MEDS ORDERED: VITAMIN C500 M1 PO (14:18)
[2020-02-22] MEDS ORDERED: VIT D3 (14:19)
[2020-02-22] MEDS ORDERED: [UNRECOGNIZED DRUG - OTHER] (14:19)
[2020-02-22] MEDS ORDERED: VITAMIN B-122500 MCG (14:20)
[2020-02-22] MEDS ORDERED: [UNRECOGNIZED DRUG - OTHER] (14:21)
[2020-02-22] MEDS ORDERED: CALCIUM (14:21)
[2020-02-22] MEDS ORDERED: FERROUS SULFAT325 MG PO (14:22)
[2020-02-22] MEDS ORDERED: MAGNESIUM OXID250 MG PO (14:22)
[2020-02-22] MEDS ORDERED: FISH OIL 1,0001 CA1 PO (14:22)
[2020-02-23 11:21] LABS: BASOPHILS 0.6 % (0-2); EOSINOPHILS 1.5 % (0-7); HEMATOCRIT 43.2 % (42.0-54.0); HEMOGLOBIN 14.1 g/dL (13.5-17.5); IMMATURE GRANULOCYTES 0.5 % (0-5); LYMPHOCYTES 36.3 % (15-50); MCH 29.1 pg (26.0-34.0); MCHC 32.6 g/dL (31.0-37.0); MCV 89.3 fL (80.0-100.0); MEAN PLATELET VOLUME 8.9 fL (7.4-10.4); MONOCYTES 11.8 % (2-11); NEUTROPHILS 49.3 % (40-80); PLATELET COUNT 355 10x3/uL (130-400); RBC 4.84 10x6/uL (4.20-6.10); RDW 14.8 % (11.5-14.5); WBC 8.7 10x3/uL (4.8-10.8)
[2020-02-23 11:24] LABS: ANION GAP 13.1 mmol/L (8-16); CALCIUM 9.8 mg/dL (8.5-10.1); CARBON DIOXIDE 28.1 mmol/L (21.0-32.0); CREATININE - SERUM 1.1 mg/dL (0.6-1.3); POTASSIUM - SERUM 4.2 mmol/L (3.5-5.1)
[2020-02-23 11:28] LABS: BILIRUBIN NEGATIVE (NEGATIVE); KETONE NEGATIVE (NEGATIVE); NITRITE NEGATIVE (NEGATIVE); UROBILINOGEN NORMAL mg/dL (< 2)
[2020-02-23 11:30] LABS: APTT 30.2 SECONDS (22.8-39.4); INR 0.94 (0.85-1.17); PROTIME 12.5 SECONDS (11.6-15.0)
[2020-02-29] VITALS (11 sets, daily range): BP systolic 121–139; BP diastolic 71–91; Ht 160 cm; Wt 81.8 kg
--- NOTE | 2020-02-29 09:28 | NUR ---
THROUGH TRAFFIC KEPT TO A MINIMUM. HIBACLENS AND ALCHOL USED TO CLEAN BEFORE PREPPING. STERILE GOWNED AND GLOVED TO PREP.
--- NOTE | 2020-02-29 11:45 | NUR ---
RECEIVED PT FROM PACU. VS WNL. PT AROUSES TO VOICE AND ANSWERS QUESTIONS, O X4. PIV TO RIGHT FOREARM, PATENT AND INFUSING, NO REDNESS OR SWELLING. SIXTO HOSE IN PLACE. JASON WRAP ON LLE, C/D/I. SPOUSE AT BEDSIDE. EDUCATED ON CL AND NEEDS, VERBALIZED UNDERSTANDING. BED LOW, RAILS X2, ALARM ON, CL IN REACH. WILL CONTINUE TO MONITOR.
--- NOTE | 2020-02-29 12:22 | NUR ---
PT OXYGEN LEVELS DIPPING INTO HIGH 80S ON ROOM AIR. OXYGEN AT 2 LNC APPLIED. SATS NOW 97-100M%. BED ALARM ACTIVATED. NO COMPLAINTS OF PAIN OR NUMBNESS.
--- NOTE | 2020-02-29 14:15 | NUR ---
PT AMBULATED WITH PT TO BR, TOLERATED WELL. BED LOW, CL IN REACH.
--- NOTE | 2020-02-29 16:15 | NUR ---
PT O2 SAT 98% ON 1L NC. D/C NC AND WILL MONITOR 02 SAT Q15MIN FOR 1HR TO ENSURE O2 SAT STAYS ABOVE 94%. BED LOW, CL IN REACH.
--- NOTE | 2020-02-29 16:31 | NUR ---
PT C/O PAIN 12/26, PROVIDED MEDS PER ORDER AND TWO ICE PACKS FOR KNEE. DENIES FURTHER NEEDS. BED LOW, CL IN REACH.
--- NOTE | 2020-02-29 18:25 | NUR ---
PLACED PT ON CPM MACHIENE, TOLERATED WELL. BED LOW, CL IN REACH.
--- NOTE | 2020-02-29 20:00 | NUR ---
ALERT RESTING IN BED CPM IN USE, DENIES PAIN OR NEEDS AT THSI TIME, SEE SHIFT ASSESSMENT, CALL LIGHT IN REACH
[2020-03-01 00:15] VITALS: BP 119/80
[2020-03-01 04:00] VITALS: BP 122/69
--- NOTE | 2020-03-01 07:05 | NUR ---
RECEIVED BEDSIDE REPORT. PT LAYING IN BED A&O X4. PIV TO RIGHT FOREARM, PATENT AND INFUSING, NO REDNESS OR SWELLING. CPM TO LEFT LEG, SIXTO HOSE TO RIGHT LEG. EDUCATED PT ON CL AND NEEDS, VERBALIZED UNDERSTANDING. BED LOW, ALARM ON, CL IN REACH. WILL CONTINUE TO MONITOR.
[2020-03-01 07:27] LABS: HEMATOCRIT 30.4 % (42.0-54.0); HEMOGLOBIN 9.7 g/dL (13.5-17.5); MCH 28.3 pg (26.0-34.0); MCHC 31.9 g/dL (31.0-37.0); MCV 88.6 fL (80.0-100.0); MEAN PLATELET VOLUME 9.4 fL (7.4-10.4); RBC 3.43 10x6/uL (4.20-6.10); RDW 14.9 % (11.5-14.5); WBC 12.8 10x3/uL (4.8-10.8)
[2020-03-01 07:54] VITALS: BP 138/83
[2020-03-01] MEDS ORDERED: oxyCODONE IR PO (08:03)
[2020-03-01] MEDS ORDERED: ELIQUIS2.5 MG PO (08:03)
[2020-03-01] MEDS ORDERED: KEFLEX500 MG PO (08:03)
--- NOTE | 2020-03-01 09:44 | NUR ---
PT C/O 12/26 PAIN, PROVIDED MEDS PER ORDER. PT TOLERATED WELL. BED LOW, CL IN REACH.
[2020-03-01 11:25] VITALS: BP 132/72
--- NOTE | 2020-03-01 11:26 | MORECARE ---
CASE MANAGEMENT DISCHARGE SUMMARY PATIENT: KAY REYNOSO UNIT: [id number] ADM DATE: 02/29/20 AGE: 59 : 64 SEX: M ROOM/BED: D.1209 AUTHOR: SOLOMON KERR PHYSICIAN: REFERRING PHYSICIAN: AGUSTÍN LE DO DATE OF SERVICE: 03/01/20 Discharge Plan Patient Name: KAY REYNOSO [facility] [facility] 1960 Planned Disposition: Outpatient PT\OT Anticipated Discharge Date: 03/01/20 Discharge Date: Expected LOS: 1 Initial Reviewer: JOSE Initial Review Date: 02/29/2020 Generated: 03/01/20 12:26 pm DCPIA - Discharge Planning Initial Assessment Updated by [id number]: Chon Stallings on 03/01/20 11:25 am * Is the patient Alert and Oriented? Yes * How many steps to enter\exit or inside your home? 1/0 * PCP Dr Treviño * Pharmacy [facility] * Preadmission Environment Home with Family * ADLs Independent * Equipment Cane Walker * Other Equipment NONE * List name and contact numbers for known caregivers / representatives who currently or will assist patient after discharge: Cassidy Reynoso - spouse - [phone] * Verbal permission to speak to the caregivers and representatives has been obtained from the patient. Yes * Community resources currently utilized None * Please name any agencies selected above. NONE * Additional services required to return to the preadmission environment? Yes * Can the patient safely return to the preadmission environment? Yes * Has this patient been hospitalized within the prior 30 days at any hospital? No Patient Name: KAY REYNOSO Page [phone] at 1126 All edits/amendments must be made on the electronic document DICTATION DATE: 03/01/201125 PLATFORM CONSULTANT: CHEYENNE 03/01/201125 RPT#: [id number] DC DATE: STATUS: ADM IN [facility] [address] [place] [address] END OF REPORT
--- NOTE | 2020-03-01 11:47 | MORECARE ---
CASE MANAGEMENT DISCHARGE SUMMARY PATIENT: KAY REYNOSO UNIT: [id number] ADM DATE: 02/29/20 AGE: 59 : 64 SEX: M ROOM/BED: D.1209 AUTHOR: SOLOMON KERR PHYSICIAN: REFERRING PHYSICIAN: AGUSTÍN LE DO DATE OF SERVICE: 03/01/20 Discharge Plan Patient Name: KAY REYNOSO [facility] [facility] 1960 Planned Disposition: Outpatient PT\OT Anticipated Discharge Date: 03/01/20 Discharge Date: Expected LOS: 1 Initial Reviewer: JOSE Initial Review Date: 02/29/2020 Generated: 03/01/20 12:46 pm DCPIA - Discharge Planning Initial Assessment Updated by [id number]: Chon Stallings on 03/01/20 11:25 am * Is the patient Alert and Oriented? Yes * How many steps to enter\exit or inside your home? 1/0 * PCP Dr Treviño * Pharmacy [facility] * Preadmission Environment Home with Family * ADLs Independent * Equipment Cane Walker * Other Equipment NONE * List name and contact numbers for known caregivers / representatives who currently or will assist patient after discharge: Cassidy Reynoso - [facility] - [phone] * Verbal permission to speak to the caregivers and representatives has been obtained from the patient. Yes * Community resources currently utilized None * Please name any agencies selected above. NONE * Additional services required to return to the preadmission environment? Yes * Can the patient safely return to the preadmission environment? Yes * Has this patient been hospitalized within the prior 30 days at any hospital? No External Providers External Provider: Lurdes Weaver PT Next Contact Date: Service Request Date: Service Type: Resolution: Reviewer: Comments: Last DP export: 03/01/20 10:26 Patient Name: KAY REYNOSO Page [phone] at 1147 All edits/amendments must be made on the electronic document DICTATION DATE: 03/01/20 1146 LICENSED SALES PRODUCER: CHEYENNE 03/01/20 1146 RPT#: [id number] DC DATE: STATUS: ADM IN [facility] [address] [facility] [place] [address] END OF REPORT
--- NOTE | 2020-03-01 11:54 | MORECARE ---
CASE MANAGEMENT DISCHARGE SUMMARY PATIENT: KAY REYNOSO UNIT: [id number] ADM DATE: 02/29/20 AGE: 59 : 64 SEX: M ROOM/BED: D.1209 AUTHOR: USHA,DOC PHYSICIAN: REFERRING PHYSICIAN: AGUSTÍN LE DO DATE OF SERVICE: 03/01/20 Discharge Plan Patient Name: KAY REYNOSO [facility]:[place] : 1960 Planned Disposition: Outpatient PT\OT Anticipated Discharge Date: 03/01/20 Discharge Date: Expected LOS: 1 Initial Reviewer: JOSE Initial Review Date: 02/29/2020 Generated: 03/01/20 12:53 pm Comments DCP- Discharge Planning Updated by JOSE: Chon Stallings on 03/01/20 10:[address] Patient Name: KAY REYNOSO Admission Status: Elective Accout number: [id number] Admission Date: 02-29-2020 : 1960 Admission Diagnosis: Attending: AGUSTÍN LE Current LOS: 1 Anticipated DC Date: 03-01-2020 Planned Disposition: Outpatient PT\OT Primary Insurance: [employer] Discharge Planning Comments: CM met with patient for DC planning. Patient is in agreement with DC Plan. Patient lives at home with his spouse, Cassidy Reynoso ([phone]). Patient has 1 step to enter his home and it is safe. PCP: Dr. Treviño. Pharmacy: [facility]. DME: Ariel. Emergency contact: is his spouse, Cassidy. CM discussed HHS, OP Therapy, SNF, Rehab. Patient states he would like to go to [facility]. GINA signed for same. CM notified Sebastien, with [facility], ([phone]). Clinicals faxed to Sebastien at [facility] ([phone]). Sebastien stated that she will contact patient with therapy appointment. Patient voices no other needs at this time. CM will follow and assist PRN. Oral Pathologist: Chon Stallings DCPIA - Discharge Planning Initial Assessment Updated by [id number]: Chon Stallings on 03/01/20 11:25 am * Is the patient Alert and Oriented? Yes * How many steps to enter\exit or inside your home? 1/0 * PCP Dr Treviño * Pharmacy [facility] * Preadmission Environment Home with Family * ADLs Independent * Equipment Cane Walker * Other Equipment NONE * List name and contact numbers for known caregivers / representatives who currently or will assist patient after discharge: Cassidy Reynoso - [facility] - [phone] * Verbal permission to speak to the caregivers and representatives has been obtained from the patient. Yes * Community resources currently utilized None * Please name any agencies selected above. NONE * Additional services required to return to the preadmission environment? Yes * Can the patient safely return to the preadmission environment? Yes * Has this patient been hospitalized within the prior 30 days at any hospital? No Coverage Notice Reviewer: [id number] Valencia Stallings Notice Issued Date-Time: 03/01/2020 10:50 Notice Type: Patient Choice Letter Notice Delivered To: Patient Relationship to Patient: Self Industry Operations Investigator Name: Delivery Method: HAND - Hand Delivered Kary Days: Prior Verbal Notification: Recipient Understood Notice: Yes Recipient Signature: Yes Med Rec Note Co-signed by Attending: Coverage Notice Comment: [facility] Last DP export: 03/01/20 10:47 Patient Name: KAY REYNOSO Page [phone] at 1154 All edits/amendments must be made on the electronic document DICTATION DATE: 03/01/20 115 [employer]ETHANE [employer] COLLECTION SYSTEM OPERATOR: CHEYENNE 03/01/20 1154 RPT#: [id number] DC DATE: STATUS: ADM IN [facility] [address] [place] [address] END OF REPORT
--- NOTE | 2020-03-01 13:03 | NUR ---
PT C/O PAIN 12/26, PROVIDED MEDS PER ORDER. PT TOLERATED WELL. CHAIR ALARM ON, CL IN REACH.
--- NOTE | 2020-03-01 13:58 | OP ---
PATIENT NAME: KAY REYNOSO MEDICAL RECORD: [id number] :64 LOCATION:D.M3 D.1209 ADMISSION DATE:02/29/20 SURGEON: SAURABH LE DO DATE OF OPERATION: 02/29/2020 PROCEDURE PERFORMED: Left total knee arthroplasty. PREOPERATIVE DIAGNOSIS: Severe left knee osteoarthritis. POSTOPERATIVE DIAGNOSIS: Severe left knee osteoarthritis. INDICATIONS: Mr. Reynoso is a 59-year-old male who had ACL surgery done a few years ago, got infected. 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 I have been treating him for the last year and a half for this, did a washout and put him on antifungals and then did a bone biopsy and bone biopsy came back negative and then also knee aspiration and it came back negative. We then at that time got a CT scan of the knee for the Vanguard Signature knee as his deformity is severe to use those blocks and informed him of the high likelihood of infection due to previous infection, but he had been infection free for over a year, 18 months in fact, but he will be at increased risk for that. I then informed him of the risk of failure of implants, blood clots, infection, bleeding, damage to nerve, vessel in the area, continued pain, loss of range of motion and limited range of motion, and even . He was okay with all that and he signed the consent. SURGEON: Saurabh Le DO DESCRIPTION OF PROCEDURE: The patient was taken to the operative suite, laid in supine position, given general anesthetic. TXA 2 grams Ancef and 80 mg gentamicin, sedated and LMA was placed, given a block by anesthesia also. The left lower extremity was then prepped and draped in sterile fashion. A timeout was performed and everyone was in agreement with correct side, site, patient and procedure. We then marked out the incision and covered in Ioban. An incision with a 10 blade down to the capsule as the capsule was very thick due to the previous synovectomy. I then opened up the capsule with a fresh 10 blade and doing a medial parapatellar approach and resected part of the synovium as well to make it thinner. We then exposed the patella and milled it down, sized it to be 28. I then exposed the femur, removed the soft tissue in the area and put on the block and pinned it in to place, put the distal cutting guide on and cut the distal femur. I then used the 4-in-1 cutting block and cut a 67.5. I then used block on the tibia and cut it. Once the tibia was cut, I placed trials and they fit well. We knew we had to put a large poly in. Due to the severity of the deformity and instability, we did use a PS femur and notched the femur as well. The intercondylar notch for the PS. I then reamed and punched the tibia, put extra holes in the tibia. All the cement was then mixed, irrigated that and the femur and cemented the tibia. I put in on the implant and tibia and impacted into place, removed the excess cement. I then did the same thing on the femur, put cement on the femur and removed this and backed it on the implant with cement on the implant as well, removed all the cement in and out of the notch. We then trialled and went up to a 24 PS plus bearing, it fit very well, had good stability medial or lateral with varus and valgus stress in extension and flexion. I then locked the poly into place. I then put in the 10% povidone iodine with 500 mL of normal saline solution and let it sit for 3 minutes, put in Mumtaz and vancomycin and tobramycin powder and then closed the capsule with OPERATIVE REPORT [id number] KAY REYNOSO #1 Vicryl. After, the cement had dried and the Betadine solution was irrigated out is when the powders went in the capsule and closed with #1 Vicryl in faosxd-do-qerht fashion. Corinne Hoffman and Farhad Grier, certified surgical sales assistant displays student, then closed the skin under my direction with 2-0 Vicryl in an inverted interrupted fashion. ZipLine was then placed on the knee. Adaptic, 4 x 4s, ABD, Webril, Rikki wrap was then placed on the knee. He was then awakened and taken to recovery in stable condition. Blood loss was approximately 200 mL. COMPLICATIONS: None. TRANSINT:[id number] Voice Confirmation ID: [id number] DOCUMENT ID: [id number] SAURABH LE DO at 2136 CC: [id number] DICTATION DATE: 02/29/20 162 MALE IMPERSONATOR: 02/29/20 0753 ADM IN [facility] [address] [id number]
--- NOTE | 2020-03-01 14:28 | MORECARE ---
CASE MANAGEMENT DISCHARGE SUMMARY PATIENT: KAY REYNOSO UNIT: [id number] ADM DATE: 02/29/20 AGE: 59 : 64 SEX: M ROOM/BED: D.1209 AUTHOR: USHA,DOC PHYSICIAN: REFERRING PHYSICIAN: AGUSTÍN LE DO DATE OF SERVICE: 03/01/20 Discharge Plan Patient Name: KAY REYNOSO Facility: [facility]:[place] : 1960 Planned Disposition: Outpatient PT\OT Anticipated Discharge Date: 03/01/20 Discharge Date: Expected LOS: 1 Initial Reviewer: [email or web address] Initial Review Date: 02/29/2020 Generated: 03/01/20 3:27 pm DCP- Discharge Planning Updated by [email or web address]: Emili Epstein on 03/01/20 1:[address] Patient Name: KAY REYNOSO Admission Status: Elective Accout number: [id number] Admission Date: 02-29-2020 : 1960 Admission Diagnosis: Attending: AGUSTÍN LE Current LOS: 1 Anticipated DC Date: 03-01-2020 Planned Disposition: Outpatient PT\OT Primary Insurance: [employer] Discharge Planning Comments: CM met with patient for DC planning. Patient is in agreement with DC Plan. Patient lives at home with his spouse, Cassidy Reynoso ([phone]). Patient has 1 step to enter his home and it is safe. PCP: Dr. Treviño. Pharmacy: [facility]. DME: Ariel, [facility]. Emergency contact: is his spouse, Cassidy. CM discussed HHS, OP Therapy, SNF, Rehab. Patient states he would like to go to [facility]. GINA signed for same. CM notified Sebastien, with [facility], ([phone]). Clinicals faxed to Sebastien at [facility] ([phone]). Sebastien stated that she will contact patient with therapy appointment. Patient voices no other needs at this time. CM will follow and assist PRN. Vba Programmer: Chon Stallings DCPIA - Discharge Planning Initial Assessment Updated by [email or web address]: Chon Stallings on 03/01/20 11:25 am * Is the patient Alert and Oriented? Yes * How many steps to enter\exit or inside your home? 1/0 * PCP Dr Treviño * Pharmacy [facility] * Preadmission Environment Home with Family * ADLs Independent * Equipment Cane Walker * Other Equipment NONE * List name and contact numbers for known caregivers / representatives who currently or will assist patient after discharge: Cassidy Reynoso - [facility] - [phone] * Verbal permission to speak to the caregivers and representatives has been obtained from the patient. Yes * Community resources currently utilized None * Please name any agencies selected above. NONE * Additional services required to return to the preadmission environment? Yes * Can the patient safely return to the preadmission environment? Yes * Has this patient been hospitalized within the prior 30 days at any hospital? No Coverage Notice Reviewer: [id number] Valencia Stallings Notice Issued Date-Time: 03/01/2020 10:50 Notice Type: Patient Choice Letter Notice Delivered To: Patient Relationship to Patient: Self Qc Manager Name: Delivery Method: HAND - Hand Delivered Kary Days: Prior Verbal Notification: Recipient Understood Notice: Yes Recipient Signature: Yes Med Rec Note Co-signed by Attending: Coverage Notice Comment: [facility] Last DP export: 03/01/20 10:54 Patient Name: KAY REYNOSO Page [id number] at 1428 All edits/amendments must be made on the electronic document DICTATION DATE: 03/01/201426 MANAGER USER EXPERIENCE: CHEYENNE 03/01/201426 RPT#: [id number] DC DATE: STATUS: ADM IN [facility] [address] [place] [address] END OF REPORT
--- NOTE | 2020-03-01 17:00 | NUR ---
CHANGED DRESSING TO LEFT KNEE WITH MEDIPLEX AND JASON WRAP, INCISION HAS NO DRAINAGE, STRIPS IN PLACE. PT TOLERATED WELL.
--- NOTE | 2020-03-01 17:06 | MORECARE ---
CASE MANAGEMENT DISCHARGE SUMMARY PATIENT: KAY REYNOSO UNIT: [id number] ADM DATE: 02/29/20 AGE: 59 : 64 SEX: M ROOM/BED: D.1209 AUTHOR: USHA,DOC PHYSICIAN: REFERRING PHYSICIAN: AGUSTÍN LE DO DATE OF SERVICE: 03/01/20 Discharge Plan Patient Name: KAY REYNOSO Facility: [facility]:[place] : 1960 Planned Disposition: Outpatient PT\OT Anticipated Discharge Date: 03/01/20 Discharge Date: Expected LOS: 1 Initial Reviewer: [email or web address] Initial Review Date: 02/29/2020 Generated: 03/01/20 6:06 pm DCP- Discharge Planning Updated by [email or web address]: Emili Epstein on 03/01/20 1:[address] Patient Name: KAY REYNOSO Admission Status: Elective Accout number: [id number] Admission Date: 02-29-2020 : 1960 Admission Diagnosis: Attending: AGUSTÍN LE Current LOS: 1 Anticipated DC Date: 03-01-2020 Planned Disposition: Outpatient PT\OT Primary Insurance: [employer] Discharge Planning Comments: CM met with patient for DC planning. Patient is in agreement with DC Plan. Patient lives at home with his spouse, Cassidy Reynoso ([phone]). Patient has 1 step to enter his home and it is safe. PCP: Dr. Treviño. Pharmacy: [facility]. DME: Ariel, [facility]. Emergency contact: is his spouse, Cassidy. CM discussed HHS, OP Therapy, SNF, Rehab. Patient states he would like to go to [facility]. GINA signed for same. CM notified Sebastien, with [facility], ([phone]). Clinicals faxed to Sebastien at [facility] ([phone]). Sebastien stated that she will contact patient with therapy appointment. Patient voices no other needs at this time. CM will follow and assist PRN. Chemistry Faculty Member: Chon Stallings DCPIA - Discharge Planning Initial Assessment Updated by [email or web address]: Chon Stallings on 03/01/20 11:25 am * Is the patient Alert and Oriented? Yes * How many steps to enter\exit or inside your home? 1/0 * PCP Dr Treviño * Pharmacy [facility] * Preadmission Environment Home with Family * ADLs Independent * Equipment Cane Walker * Other Equipment NONE * List name and contact numbers for known caregivers / representatives who currently or will assist patient after discharge: Cassidy Reynoso - [facility] - [phone] * Verbal permission to speak to the caregivers and representatives has been obtained from the patient. Yes * Community resources currently utilized None * Please name any agencies selected above. NONE * Additional services required to return to the preadmission environment? Yes * Can the patient safely return to the preadmission environment? Yes * Has this patient been hospitalized within the prior 30 days at any hospital? No Coverage Notice Reviewer: [id number] Valencia Stallings Notice Issued Date-Time: 03/01/2020 10:50 Notice Type: Patient Choice Letter Notice Delivered To: Patient Relationship to Patient: Self Home Health Provider Name: Delivery Method: HAND - Hand Delivered Kary Days: Prior Verbal Notification: Recipient Understood Notice: Yes Recipient Signature: Yes Med Rec Note Co-signed by Attending: Coverage Notice Comment: [facility] Last DP export: 03/01/20 1:28 Patient Name: AKY REYNOSO Page [phone] at 1706 All edits/amendments must be made on the electronic document DICTATION DATE: 03/01/201705 QA CONSULTANT: CHEYENNE 03/01/201705 RPT#: [id number] DC DATE: STATUS: ADM IN [facility] [address] [place] [address] END OF REPORT
--- NOTE | 2020-03-01 17:21 | NUR ---
EDUCATED PT ON DISCHARGE INSTRUCTIONS, MEDICATIONS, FOLLOW UP APPOINTMENTS AND ACTIVITY, VERBALIZED UNDERSTANDING AND SIGNED PAPERWORK. D/C PIV IN RIGHT FOREARM, CATHETER INTACT, NO REDNESS OR SWELLING. ESCORTED PT TO ER EXIT VIA WHEELCHAIR.
== END 2020-03-01 17:24 | disposition home or self-care (01) | DRG 470 ==
LOC: D.SDCHOLD 02-23 10:00 → D.M3 02-29 06:50 → D.SDCHOLD 02-29 08:00 → D.M3 02-29 09:10 → D.SDCHOLD 02-29 10:00 → D.M3 03-01 17:24
PROVIDERS: ADMIT Orthopaedic Surgery; ATTEND Orthopaedic Surgery
PROC: 0SRD0J9 Replacement of Left Knee Joint with Synthetic Substitute, Cemented, Open Approach (ICD-10-PCS; principal; 2020-02-29 08:15)
DX: M17.12 Unilateral primary osteoarthritis, left knee (principal); K21.9 Gastro-esophageal reflux disease without esophagitis